=== PATIENT | female | born 1970 | race Caucasian/White ===

== ENCOUNTER 2020-11-19 16:33 | Outpatient (CLI) | payer BC, MEDICAID ==
--- NOTE | 2020-11-20 09:51 | XRAY Report ---
PROCEDURE: Ankle 3 View LT INDICATIONS: SPRAIN OF OTHER LIGAMENT OF L ANKLE TECHNIQUE: 3 views of the ankle were acquired. COMPARISON: None FINDINGS: Bones: Small calcifications adjacent to lateral aspect of talus is noted, suggestive of acute avulsio n injury involving distal malleolus. Ankle mortise is normally aligned. No suspicious bony lesions. Soft tissues: No tibiotalar joint effusion. Achilles tendon appears normal. Lateral ankle soft tis horace swelling is seen. IMPRESSION: Finding is suggestive of avulsion injury involving distal malleolus of indeterminate age . No other fracture or dislocation. Mild lateral ankle soft tissue swelling. Reviewed by: Toño Lopez MD on 11/20/2020 9:50 AM PDT Approved by: Toño Lopez MD on 11/20/2020 9:50 AM PDT Station ID: [id number]
== END 2020-11-19 23:59 | disposition home or self-care (01) ==
LOC: DI.N 16:33
PROVIDERS: ATTEND Physician Assistant Medical
DX: S93.492A Sprain of other ligament of left ankle, initial encounter (principal)

== ENCOUNTER 2024-02-27 18:30 | Emergency (ER) | payer BC, MEDICAID, OTHER ==
[2024-02-27 18:46] VITALS: O2SAT 98
--- NOTE | 2024-02-27 18:50 | ED Physician Documentation ---
History of Present Illness - Stated complaint Stated Complaint: L FINGER INJ - Chief complaint Chief Complaint: Trauma Ext - Additonal information Additional information: Patient is a 53-year-old female presenting to the emergency department with laceration to left middle finger. Patient was using a wood splitter prior to coming when her finger got caught with the wood. She is able to turn it off. She has persistent bleeding and has full sensation to the digit. She had a tetanus shot last 2 years ago. She denies any numbness or tingling to the digit. She denies any other injury to the digits other than third digit of left hand. Patient is not on blood thinners. PD PAST MEDICAL HISTORY - Past Medical History Past Medical History: No - Past Surgical History Past Surgical History: Yes General: Cholecystectomy Ortho: Spine surgery /[employer] PALLIATIVE CARE: section - Present Medications Home Medications: Ambulatory Orders Medication Instructions Recorded Confirmed cephALEXin [Keflex] 500 mg PO QID #28 cap 02/27/24 - Allergies Allergies/Adverse Reactions: Allergies Allergy/AdvReac Type Severity Reaction Status Date / Time No Known Drug Allergies Allergy Verified 02/27/24 18:39 - Social History Does the pt smoke?: No Smoking Status: Never smoker PD ED PE NORMAL - Vitals Vital signs reviewed: Yes - General General: Alert and oriented X 3 - HEENT HEENT: Atraumatic - Neck Neck: Supple, no meningeal sign - Cardiac Cardiac: RRR, No murmur, No gallop - Respiratory Respiratory: No respiratory distress, Clear bilaterally - Abdomen Abdomen: Normal bowel sounds - Extremities Extremities: Other - Neuro Neuro: Alert and oriented X 3 Eye Opening: Spontaneous Motor: Obeys Commands Verbal: Oriented GCS Score: 15 - Psych Psych: Normal mood Results - Vitals Vitals: Vital Signs - 24 hr 02/27/24 18:32 Temperature 36.3 C L Heart Rate 95 Respiratory 18 Rate Blood Pressure 179/114 H O2 Saturation 98 Oxygen O2 Source Room air Procedures - Laceration (location) left middle finger Wound type: Irregular Neurovascular status: Sensory intact, Motor intact, Vascular intact, Other Anesthesia: Lidocaine 1% Wound preparation: Irrigated copiously NS Skin layer closure: Nylon, Sutures - enter # (5), Other (Suture applied through nailbed to tack down nail into correct position.) Other: Patient tolerated well, No complications, Neurovascular intact, Dressing applied, Tetanus UTD PD Medical Decision Making - ED course Complexity details: reviewed old records, reviewed results ED course: Patient is a 53-year-old presenting to the emergency department after sustaining laceration to left finger after splitting wood. Patient notes no numbness or tingling she has decreased range of motion but most likely secondary to pain. Vital stable on arrival. Laceration across medial portion of left middle finger and no extension to nail bed. There is no bleeding of nailbed but nail is not intact. No signs of lacerations only small abrasions to distal portion of left middle finger. She has good sensation intact and full range of motion at MCP and PIP joints. Good capillary refill appreciated. X-ray obtained showing comminuted distal tuft fracture of distal phalanx of third digit with associated skin laceration. Patient was given Ancef within an hour of being present here in emergency department. She is given fentanyl and nerve block to with digital block of middle finger. Patient tolerated procedure well she had 5 sutures placed 1 suture through nail to tack down the nail here in the emergency department. Patient tolerated well she was given oral antibiotics to take for the next 10 days to prevent any signs of infection. She was given phone number for hand surgery for follow-up in outpatient setting. Patient is already up-to-date on her tetanus vaccine at this time. Patient instructed to watch for redness swelling warmth fevers discharge numbness tingling worsening or decreased range of motion to digit and to follow-up with the hand surgery in outpatient setting. Patient will have sutures removed in 14 days. Finger splinted emergency department to prevent worsening injury and help with distal tuft fracture to heal. Patient understands and is agreeable with this plan. Departure - Departure Disposition: 01 Home, Self Care Clinical Impression: Laceration of middle finger with damage to nail Condition: Good Prescriptions: cephALEXin [Keflex] 500 mg PO QID #28 cap Comments: Come back for any signs of infection which would include: Redness, swelling, drainage, increased pain, or fevers. You can wash it soap and water. Keep it covered and moist with bacitracin ointment which is available over the counter; avoid neosporin. Follow-up with your physician in 14 days for suture removal I have given you prescription for oral antibiotics that you should take to prevent wound infection. Keep wound clean dry monitor for any worsening pain or discoloration. I have given you phone number for hand surgeon you should follow-up in outpatient setting.. Forms: PCP List
--- NOTE | 2024-02-27 19:09 | XRAY Report ---
PROCEDURE: Finger(s) LT INDICATIONS: left finger laceration concern for open fracture TECHNIQUE: AP hand, 2 views of the third finger(s) acquired. COMPARISON: None. FINDINGS: Bones: Comminuted distal tuft fracture of distal phalanx of third finger with associated skin lacera tion. No suspicious bony lesions. Soft tissues: No suspicious soft tissue calcifications or masses. Skin laceration. IMPRESSION: Comminuted distal tuft fracture of distal phalanx of third finger with associated skin laceration. Reviewed by: Omar Barnett MD on 02/27/2024 7:08 PM PDT Approved by: Omar Barnett MD on 02/27/2024 7:08 PM PDT Station ID: [id number]
[2024-02-27] MEDS ORDERED: ceFAZolin 2 GM VIAL ONE (19:14)
[2024-02-27] MEDS: fentaNYL 100 MCG/2 ML VIAL IVP STA (19:17)
[2024-02-27] MEDS: ONDANSETRON 4 MG/2 ML VIAL IVP STA (19:19)
[2024-02-27] MEDS: ceFAZolin (2G) 2 GM in SODIUM CHLORIDE 0.9% 100ML 100 ML IV STA (19:22)
[2024-02-27] MEDS: lidocaine 1% 20 ML MDV SUBQ ONE (19:28)
[2024-02-27 21:22] VITALS: BP 169/86
== END 2024-02-27 21:23 | disposition home or self-care (01) ==
LOC: ED 18:30
DX: S62.633B Displaced fracture of distal phalanx of left middle finger, initial encounter for open fracture (principal); W31.2XXA Contact with powered woodworking and forming machines, initial encounter; Y93.89 Activity, other specified
CPT/HCPCS: 12001; 99284